=== PATIENT | female | born 1945 | race Caucasian/White ===

== ENCOUNTER 2021-05-31 10:34 | Emergency (ER) | payer MEDICARE, OTHER ==
[~2021-05-31] VITALS: Ht 162.6 cm; Wt 72.1 kg
[2021-05-31 16:33] LABS: BASOPHILS % (AUTO) 0.9 % (0.0-5.0); EOSINOPHILS % (AUTO) 0.8 % (0.0-8.0); HEMATOCRIT 36.2 % (36-48); MEAN CORPUSCULAR HEMOGLOBIN 28.9 pg (27.0-33.0); MEAN CORPUSCULAR VOLUME 90.3 fL (79-99); MONOCYTES % (AUTO) 8.7 % (3.0-13.0); NEUTROPHILS % (AUTO) 55.3 % (40.0-77.0); PLATELET COUNT (AUTO) 242 K/uL (130-400); RED BLOOD CELL COUNT(AUTO) 4.01 MIL/uL (4.00-5.50); RED CELL DISTRIBUTION WIDTH 13.8 % (11.0-15.5); WHITE BLOOD COUNT (AUTO) 6.3 K/uL (4.8-10.8)
[2021-05-31] MEDS ORDERED: ACET1TAB25 PO (16:47)
[2021-05-31 16:49] LABS: CREATININE 0.8 mg/dL (0.5-1.5); POTASSIUM 4.3 mmol/L (3.5-5.1)
[2021-05-31 16:54] LABS: ALBUMIN 3.9 g/dL (3.5-5.0); BILIRUBIN,TOTAL 0.6 mg/dL (0.2-1.0); MAGNESIUM 1.8 mg/dL (1.80-2.40); TOTAL PROTEIN, SERUM 7.7 g/dL (6.0-8.3)
[2021-05-31 16:57] LABS: B-TYPE NATRIURETIC PEPTIDE 72 pg/mL (0-100)
[2021-05-31 16:59] VITALS: BP 147/63
== END 2021-05-31 17:06 | disposition home or self-care (01) ==
LOC: EDH 10:34
DX: I73.9 Peripheral vascular disease, unspecified (principal); I10 Essential (primary) hypertension; F17.200 Nicotine dependence, unspecified, uncomplicated; Z86.73 Personal history of transient ischemic attack (TIA), and cerebral infarction without residual deficits
CPT/HCPCS: 36415; 80053; 83735; 83880; 84484; 85025; 93925